=== PATIENT | male | born 1965 | race Hispanic/Latino ===

== ENCOUNTER 2017-11-01 20:42 | Emergency (ER) | payer SELFPAY ==
[2017-11-01] MEDS ORDERED: Bicillin LA 1.2 MILLION UNITS/2 ML SYRINGE ONE (21:25)
[2017-11-01] MEDS ORDERED: HYDROcodone/Acetaminophen 7.5/325 mg Tablet ONE (21:27)
== END 2017-11-01 22:00 | disposition home or self-care (01) ==
LOC: ERS 20:42
DX: J02.0 Streptococcal pharyngitis (principal); E11.9 Type 2 diabetes mellitus without complications; E03.9 Hypothyroidism, unspecified; E78.5 Hyperlipidemia, unspecified; F17.210 Nicotine dependence, cigarettes, uncomplicated
CPT/HCPCS: 87430; 87804; 96372; J0561

== ENCOUNTER 2017-12-08 10:54 | Emergency (ER) | payer SELFPAY ==
[2017-12-08 11:35] LABS: #Basophils 0.1 thou/uL (0.0-0.2); #Eosinphils 0.2 thou/uL (0.0-0.7); #Lymphocytes 3.2 thou/uL (1.20-3.40); #Monocytes 0.6 thou/uL (0.11-0.59); #Neutrophils 4.8 thou/uL (1.40-6.50); %Basophils 1.4 % (0.0-1.0); %Eosinophils 2.5 % (0.0-10.0); %Lymphocytes 35.7 % (21.0-51.0); %Monocytes 7.1 % (0.0-10.0); %Neutrophils 53.4 % (42.0-75.0); Hemoglobin 12.2 g/dL (14.0-18.0); Mean Corpuscular Volume 91.1 fl (80.0-94.0); Mean Platelet Volume 7.1 fL (7.4-10.4); Platelet Count 252 thou/uL (130-400); RBC Distribution Width 12.7 % (11.5-14.5); Red Blood Cell (RBC) Count 3.94 mill/uL (4.70-6.10)
[2017-12-08] MEDS ORDERED: ISOVUE-370 76%-LOCM 1 ML ONE (11:46)
[2017-12-08 11:58] LABS: ALT (SGPT) 22 U/L (8-55); AST (SGOT) 28 U/L (5-34); Albumin 4.3 g/dL (3.5-5.0); Alkaline Phosphatase 79 U/L (40-150); Anion Gap 13 mmol/L (10-20); BUN (Urea Nitrogen) 23 mg/dL (8.9-20.6); Bilirubin, Total 0.3 mg/dL (0.2-1.2); CRP (Inflammatory) Less than 0.50 mg/dL (= or < 0.5); Calc. Creatinine Clearance 0 mL/min (70-130); Calcium 9.7 mg/dL (7.8-10.44); Carbon Dioxide 25 mmol/L (22-29); Chloride 103 mmol/L (98-107); Estimated GFR-MDRD 75; Globulin 3.2 g/dL (2.4-3.5); Glucose 183 mg/dL (70-105); Potassium 4.5 mmol/L (3.5-5.1); Protein, Total 7.5 g/dL (6.0-8.3); Sodium 136 mmol/L (136-145)
[2017-12-08] MEDS ORDERED: Metoclopramide HCl 10 MG/2 ML VIAL ONE (12:27)
[2017-12-08] MEDS ORDERED: methylPREDNISolone Sod Succ/PF 125 MG/2 ML VIAL ONE (12:27)
[2017-12-08] MEDS ORDERED: diphenhydrAMINE 50 MG/ML VIAL ONE (12:27)
--- NOTE | 2017-12-08 13:04 | CT ---
NONCONTRAST HEAD CT CT ANGIOGRAM OF [place]: Date: 12/08/17 HISTORY: Visual disturbances. Vision changes. Worsening headache. COMPARISON: None. TECHNIQUE: Noncontrast head CT is performed in the axial plane. CT angiogram of [place] performed in th e axial plane. Reformatted images submitted for interpretation. FINDINGS: NONCONTRAST HEAD CT: No parenchymal hemorrhage. No extra-axial hematoma. No midline shift. Basilar cisterns are patent. Brain volume is age-appropriate. Cortical downs-white matter differentiation is preserved. Ventricles and sulci are patent and symmetric. Adequate aeration of the sinuses and mastoid air cells. Calvarium is intact. On the postcontrast images, cortical downs-white matter differentiation is preserved. CT ANGIOGRAM: There is symmetric enhancement and luminal diameter of the distal cervical and petrous segments of [place] th internal carotid arteries. There is atherosclerosis involving both cavernous segments with moderat e stenosis involving the left cavernous carotid artery. Both paraclinoid segments are unremarkable. Anterior Circulation: There is symmetric enhancement and luminal diameter of the T1 and M1 segments. Proximal A2 segments a nd proximal MCA branches are essentially symmetric. Posterior Circulation: Codominant vertebral arteries. Left PICA artery origin is unremarkable. Right PICA artery origin is d ifficult to appreciate. Both vertebral arteries supply a normal basilar artery. The left and right P1 segments have symmetric enhancement and luminal diameter. IMPRESSION: 1. Unremarkable CT angiogram of the [place]. No evidence of significant stenosis or aneurys m. 2. 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 POS: [facility]
== END 2017-12-08 15:11 | disposition home or self-care (01) ==
LOC: ERS 10:54
DX: H53.2 Diplopia (principal); I10 Essential (primary) hypertension; E11.9 Type 2 diabetes mellitus without complications; E03.9 Hypothyroidism, unspecified; E78.5 Hyperlipidemia, unspecified; F17.210 Nicotine dependence, cigarettes, uncomplicated; Z79.899 Other long term (current) drug therapy; Z79.84 Long term (current) use of oral hypoglycemic drugs; Z79.82 Long term (current) use of aspirin
CPT/HCPCS: 70496; 80053; 85025; 85652; 86140; 96365; 96375; J1200; J2765; J2930

== ENCOUNTER 2020-06-16 04:16 | Emergency (ER) | payer SELFPAY ==
[2020-06-16] MEDS ORDERED: Ketorolac Tromethamine 30 MG/ML VIAL ONE (04:56)
[2020-06-16 05:03] LABS: #Eosinphils 0.2 thou/uL (0.0-0.7); #Lymphocytes 2.3 thou/uL (1.20-3.40); #Monocytes 0.5 thou/uL (0.11-0.59); #Neutrophils 4.9 thou/uL (1.40-6.50); %Basophils 0.5 % (0.0-1.0); %Eosinophils 1.9 % (0.0-10.0); %Lymphocytes 28.5 % (21.0-51.0); %Monocytes 6.6 % (0.0-10.0); %Neutrophils 62.6 % (42.0-75.0); Hemoglobin 13.2 g/dL (14.0-18.0); Mean Corpuscular HGB CONC 34.1 g/dL (32.0-36.0); Mean Corpuscular Hemoglobin 32.7 pg (27.0-31.0); Mean Corpuscular Volume 95.8 fL (78.0-98.0); Mean Platelet Volume 7.5 fL (7.4-10.4); Platelet Count 259 thou/uL (130-400); RBC Distribution Width 11.7 % (11.5-14.5); Red Blood Cell (RBC) Count 4.04 mill/uL (4.70-6.10); White Blood Cell (WBC) Count 7.9 thou/uL (4.8-10.8)
[2020-06-16] MEDS ORDERED: Morphine 4 MG/ML VIAL ONE (05:28)
[2020-06-16 05:31] LABS: ALT (SGPT) 26 U/L (8-55); AST (SGOT) 19 U/L (5-34); Alkaline Phosphatase 98 U/L (40-110); Anion Gap 13 mmol/L (10-20); BUN (Urea Nitrogen) 18 mg/dL (8.4-25.7); Bilirubin, Total 0.2 mg/dL (0.2-1.2); Calc. Creatinine Clearance 0 mL/min (70-130); Calcium 8.9 mg/dL (7.8-10.44); Carbon Dioxide 26 mmol/L (22-29); Chloride 101 mmol/L (98-107); Estimated GFR-MDRD 74; Globulin 2.9 g/dL (2.4-3.5); Glucose 248 mg/dL (70-105); Lipase 73 U/L (8-78); Potassium 4.4 mmol/L (3.5-5.1); Protein, Total 6.9 g/dL (6.0-8.3); Sodium 136 mmol/L (136-145)
[2020-06-16 06:28] LABS: Bacteria/HPF None Seen HPF (None Seen); Bilirubin Negative (Negative); Blood, Urine Negative (Negative); Clarity Clear (Clear); Glucose, Urine (Dipstick) Greater than 1000 mg/dL (Negative); Ketone, Urine Negative (Negative); Leukocyte Negative Leu/uL (Negative); Nitrite Negative (Negative); Protein, Urine (Dipstick) 100 mg/dL (Neg-Trace); RBC/HPF 0-3 HPF (0-3); Specific Gravity, Urine 1.026 (1.002-1.036); Squamous Epithelial 0-3 HPF (0-3); Urobilinogen Normal mg/dL (Less than 2); WBC/HPF 0-3 HPF (0-3); pH, Urine 6.5 (5.0-9.0)
--- NOTE | 2020-06-16 07:24 | CT ---
CT OF THE ABDOMEN AND PELVIS WITHOUT IV CONTRAST: INDICATION: History of left-sided flank pain that has been worsening for the last few days. COMPARISON: CT of the abdomen and pelvis with contrast dated 05/27/2017. FINDINGS: Lung bases are clear. The unopacified liver, pancreas, adrenal glands, and spleen appear within normal limits. There is likely asymmetric perinephric stranding and enlargement of the right kidney when compared to the left that persists from the prior exam. No hydronephrosis is evident. No renal or ureteral mandy culus is evident. No free fluid is evident. There are mild vascular calcifications involving the abdominopelvic vasculature. Unopacified large and small bowel reveal no acute abnormality. There is a normal appendix in the rig ht lower quadrant. The small bowel is normal-appearing. The visualized bladder, rectum, and perirec don soft tissues are unremarkable-appearing. There are calcifications of the vas deferens which can be seen in diabetic males. There is scattered degenerative and osteoarthritic change. No acute osseous abnormality is evident. IMPRESSION: 1. Persistent perinephric stranding and slight asymmetric enlargement of the right kidney can be see n with entities such as pyelonephritis. Recommend correlation with the clinical examination and urin [facility]. No hydronephrosis is evident. No renal or ureteral calculus is noted. 2. Other chronic findings as above. POS: [facility]
== END 2020-06-16 06:55 | disposition home or self-care (01) ==
LOC: ERS 04:16
DX: R10.32 Left lower quadrant pain (principal); I10 Essential (primary) hypertension; E11.9 Type 2 diabetes mellitus without complications; E03.9 Hypothyroidism, unspecified; E78.5 Hyperlipidemia, unspecified; E78.00 Pure hypercholesterolemia, unspecified; F32.9 Major depressive disorder, single episode, unspecified; Z79.4 Long term (current) use of insulin; F17.210 Nicotine dependence, cigarettes, uncomplicated
CPT/HCPCS: 74176; 80053; 81003; 81015; 83690; 85025; 96361; 96374; 96375; J1885; J2270

== ENCOUNTER 2021-01-19 08:19 | Observation (INO) | payer SELFPAY ==
[2021-01-19] MEDS ORDERED: Ondansetron PF 4 MG/2 ML Vial ONE ×2 (08:42→09:14)
[2021-01-19 09:06] LABS: #Basophils 0.1 thou/uL (0.0-0.2); #Eosinphils 0.1 thou/uL (0.0-0.7); #Lymphocytes 2.5 thou/uL (1.20-3.40); #Monocytes 0.6 thou/uL (0.11-0.59); #Neutrophils 5.3 thou/uL (1.40-6.50); %Basophils 1.4 % (0.0-1.0); %Eosinophils 0.9 % (0.0-10.0); %Lymphocytes 29.3 % (21.0-51.0); %Monocytes 7.3 % (0.0-10.0); %Neutrophils 61.2 % (42.0-75.0); Hemoglobin 13.6 g/dL (14.0-18.0); Mean Corpuscular HGB CONC 33.9 g/dL (32.0-36.0); Mean Corpuscular Hemoglobin 32.3 pg (27.0-31.0); Mean Corpuscular Volume 95.3 fL (78.0-98.0); Mean Platelet Volume 7.3 fL (7.4-10.4); Platelet Count 325 thou/uL (130-400); RBC Distribution Width 11.9 % (11.5-14.5); Red Blood Cell (RBC) Count 4.21 mill/uL (4.70-6.10); White Blood Cell (WBC) Count 8.6 thou/uL (4.8-10.8)
[2021-01-19 09:28] LABS: ALT (SGPT) 50 U/L (8-55); AST (SGOT) 43 U/L (5-34); Albumin 4.6 g/dL (3.5-5.0); Alkaline Phosphatase 103 U/L (40-110); Anion Gap 18 mmol/L (10-20); BUN (Urea Nitrogen) 17 mg/dL (8.4-25.7); Bilirubin, Total 0.3 mg/dL (0.2-1.2); Calc. Creatinine Clearance 0 mL/min (70-130); Calcium 10.5 mg/dL (7.8-10.44); Carbon Dioxide 23 mmol/L (22-29); Chloride 102 mmol/L (98-107); Globulin 3.6 g/dL (2.4-3.5); Glucose 270 mg/dL (70-105); Potassium 4.4 mmol/L (3.5-5.1); Protein, Total 8.2 g/dL (6.0-8.3); Sodium 139 mmol/L (136-145)
[2021-01-19] MEDS ORDERED: Aspirin Chewable 81 MG TAB ONE ×2 (12:01→12:29)
[2021-01-19] MEDS ORDERED: Acetaminophen 500 MG TAB ONE (12:01)
[2021-01-19] MEDS ORDERED: Enoxaparin Sodium 100 MG/ML SYRINGE ONE (12:29)
[2021-01-19] MEDS ORDERED: Nitroglycerin 0.4 MG TAB 1 EACH ONE (12:29)
[2021-01-19] MEDS ORDERED: Potassium Chloride 20 MEQ TAB ONE (12:29)
[2021-01-19] MEDS ORDERED: Promethazine HCl 25 MG/ML VIAL ONE (12:40)
[2021-01-19] MEDS ORDERED: Dextrose 50% Abboject 50 ML SYRINGE SLOW IVP PRN (12:46)
[2021-01-19] MEDS ORDERED: hydrALAZINE 20 MG/ML VIAL SLOW IVP PRN (12:46)
[2021-01-19] MEDS ORDERED: Dextrose 5% in Water 1,000 ML IV PRN (12:46)
[2021-01-19] MEDS ORDERED: Acetaminophen 650 MG Suppository PR PRN (12:49)
[2021-01-19] MEDS ORDERED: Sodium Chloride 0.9% 1,000 ML IV SCH (13:00)
[2021-01-19 14:49] VITALS: BMI 30.9
[2021-01-19] MEDS: HumaLOG 300 UNITS/3 ML VIAL SC PRN (17:30)
[2021-01-19] MEDS: Meclizine HCl 25 MG TAB PO PRN (18:13)
[2021-01-19] MEDS: Lantus 1000 UNITS/10 ML VIAL SC SCH (22:20)
[2021-01-19] MEDS: Famotidine 20 MG TAB PO SCH (22:21)
[2021-01-19] MEDS: Atorvastatin Calcium 40 MG TAB PO SCH (22:21)
[2021-01-19] MEDS: Acetaminophen 325 MG TAB PO PRN (23:32)
[2021-01-20 04:46] LABS: #Basophils 0.1 thou/uL (0.0-0.2); #Eosinphils 0.2 thou/uL (0.0-0.7); #Lymphocytes 3.6 thou/uL (1.20-3.40); #Monocytes 0.8 thou/uL (0.11-0.59); #Neutrophils 4.2 thou/uL (1.40-6.50); %Basophils 0.9 % (0.0-1.0); %Eosinophils 2.1 % (0.0-10.0); %Lymphocytes 40.3 % (21.0-51.0); %Monocytes 8.7 % (0.0-10.0); %Neutrophils 48.1 % (42.0-75.0); Hemoglobin 12.1 g/dL (14.0-18.0); Mean Corpuscular HGB CONC 32.9 g/dL (32.0-36.0); Mean Corpuscular Hemoglobin 31.9 pg (27.0-31.0); Mean Corpuscular Volume 96.8 fL (78.0-98.0); Mean Platelet Volume 7.3 fL (7.4-10.4); Platelet Count 248 thou/uL (130-400); Red Blood Cell (RBC) Count 3.78 mill/uL (4.70-6.10); White Blood Cell (WBC) Count 8.8 thou/uL (4.8-10.8)
[2021-01-20] MEDS: Meclizine HCl 25 MG TAB PO PRN (04:48)
[2021-01-20 04:52] LABS: Hemoglobin A1c 9.2 % (4.0-6.0)
[2021-01-20 05:11] LABS: ALT (SGPT) 40 U/L (8-55); AST (SGOT) 29 U/L (5-34); Albumin 3.7 g/dL (3.5-5.0); Alkaline Phosphatase 102 U/L (40-110); Anion Gap 12 mmol/L (10-20); BUN (Urea Nitrogen) 18 mg/dL (8.4-25.7); Bilirubin, Direct Less than 0.1 mg/dL (0.1-0.3); Bilirubin, Total Less than 0.2 mg/dL (0.2-1.2); Calc. Creatinine Clearance 125 mL/min (70-130); Calcium 9.4 mg/dL (7.8-10.44); Carbon Dioxide 24 mmol/L (22-29); Cardiac Risk 5.2 (Less than 4.5); Chloride 104 mmol/L (98-107); Cholesterol 193 mg/dl (< 200 Desired); Glucose 266 mg/dL (70-105); HDL Cholesterol 37 mg/dL (>60 Neg Risk); LDL Cholesterol, Calculated 93 mg/dL; Protein, Total 6.6 g/dL (6.0-8.3); Sodium 136 mmol/L (136-145); Triglycerides 317 mg/dL (Less than 150)
[2021-01-20] MEDS: HumaLOG 300 UNITS/3 ML VIAL SC PRN ×3 (06:43→18:22)
[2021-01-20] MEDS: Famotidine 20 MG TAB PO SCH ×2 (08:45→21:13)
[2021-01-20] MEDS: Ondansetron PF 4 MG/2 ML Vial IVP PRN (08:50)
[2021-01-20] MEDS ORDERED: Aspirin 81 mg Enteric Coated Tablet PO SCH (09:00)
[2021-01-20] MEDS ORDERED: Meclizine HCl 25 MG TAB PO SCH (10:45)
[2021-01-20] MEDS ORDERED: Zolpidem Tartrate 5 MG TAB PO PRN (14:18)
[2021-01-20] MEDS ORDERED: Cyclobenzaprine 10 MG TAB PO PRN (14:18)
[2021-01-20] MEDS: Meclizine HCl 25 MG TAB PO SCH ×2 (14:40→21:13)
[2021-01-20] MEDS: Acetaminophen 325 MG TAB PO PRN (17:19)
[2021-01-20] MEDS ORDERED: HumaLOG 300 UNITS/3 ML VIAL SC PRN (19:00)
[2021-01-20] MEDS ORDERED: Simvastatin 10 MG TAB PO SCH (21:00)
[2021-01-20] MEDS ORDERED: Enoxaparin Sodium 40 MG/0.4 ML SYRINGE SC SCH (21:00)
[2021-01-20] MEDS: Lantus 1000 UNITS/10 ML VIAL SC SCH (21:12)
[2021-01-20] MEDS: Atorvastatin Calcium 40 MG TAB PO SCH (21:13)
[2021-01-21] MEDS: Ondansetron PF 4 MG/2 ML Vial IVP PRN (04:42)
[2021-01-21 05:13] LABS: #Basophils 0.1 thou/uL (0.0-0.2); #Eosinphils 0.1 thou/uL (0.0-0.7); #Lymphocytes 2.6 thou/uL (1.20-3.40); #Monocytes 0.6 thou/uL (0.11-0.59); #Neutrophils 4.1 thou/uL (1.40-6.50); %Basophils 1.1 % (0.0-1.0); %Eosinophils 1.8 % (0.0-10.0); %Lymphocytes 34.6 % (21.0-51.0); %Monocytes 8.2 % (0.0-10.0); %Neutrophils 54.3 % (42.0-75.0); Hemoglobin 11.5 g/dL (14.0-18.0); Mean Corpuscular HGB CONC 33.4 g/dL (32.0-36.0); Mean Corpuscular Hemoglobin 31.9 pg (27.0-31.0); Mean Corpuscular Volume 95.7 fL (78.0-98.0); Mean Platelet Volume 7.6 fL (7.4-10.4); Platelet Count 246 thou/uL (130-400); RBC Distribution Width 11.7 % (11.5-14.5); White Blood Cell (WBC) Count 7.6 thou/uL (4.8-10.8)
[2021-01-21 05:48] LABS: Anion Gap 12 mmol/L (10-20); BUN (Urea Nitrogen) 17 mg/dL (8.4-25.7); Calc. Creatinine Clearance 125 mL/min (70-130); Calcium 9.7 mg/dL (7.8-10.44); Carbon Dioxide 25 mmol/L (22-29); Chloride 104 mmol/L (98-107); Glucose 248 mg/dL (70-105); Potassium 4.1 mmol/L (3.5-5.1); Sodium 137 mmol/L (136-145)
[2021-01-21] MEDS: HumaLOG 300 UNITS/3 ML VIAL SC PRN ×2 (06:31→11:37)
[2021-01-21] MEDS: Acetaminophen 325 MG TAB PO PRN (08:17)
[2021-01-21] MEDS: Famotidine 20 MG TAB PO SCH (08:18)
[2021-01-21] MEDS: Meclizine HCl 25 MG TAB PO SCH (08:18)
[2021-01-21] MEDS ORDERED: Lisinopril 2.5 MG TAB PO SCH (09:00)
[2021-01-21] MEDS ORDERED: Aspirin 325 MG TAB PO SCH (09:00)
[2021-01-21 11:57] VITALS: TEMP 97.6
[2021-01-21 23:55] VITALS: BP 153/64
== END 2021-01-21 13:25 | disposition home or self-care (01) ==
LOC: ERS 08:19 → 2SE 12:32
PROVIDERS: ADMIT Internal Medicine; ATTEND Internal Medicine
DX: H93.8X2 Other specified disorders of left ear (principal); I10 Essential (primary) hypertension; E11.65 Type 2 diabetes mellitus with hyperglycemia; E78.5 Hyperlipidemia, unspecified; E03.9 Hypothyroidism, unspecified; N17.9 Acute kidney failure, unspecified; F17.210 Nicotine dependence, cigarettes, uncomplicated; Z79.4 Long term (current) use of insulin; Z79.82 Long term (current) use of aspirin; Z79.899 Other long term (current) drug therapy
CPT/HCPCS: 36415; 36416; 70450; 70551; 80048; 80053; 80061; 80076; 83036; 84443; 84484; 85025; 93005; 93306; 93880; 96372; 96374; 96375; 96376; G0378; J1650; J1815; J2405; J2550

== ENCOUNTER 2021-09-07 07:01 | Emergency (ER) | payer SELFPAY | END 2021-09-07 08:48 | disposition home or self-care (01) | LOC: ERS 07:01 | DX: S93.601A Unspecified sprain of right foot, initial encounter (principal); I10 Essential (primary) hypertension; E11.9 Type 2 diabetes mellitus without complications; E78.00 Pure hypercholesterolemia, unspecified; E78.5 Hyperlipidemia, unspecified; E03.9 Hypothyroidism, unspecified; F17.210 Nicotine dependence, cigarettes, uncomplicated ==

== ENCOUNTER 2023-09-11 11:08 | Emergency (ER) | payer SELFPAY ==
[~2023-09-11 11:08] MED LIST: Iopamidol-370 76% 500 ML MDV (1 ML CHARGE) ONE
[2023-09-11 13:35] LABS: #Basophils 0.1 thou/uL (0.0-0.2); #Eosinphils 0.3 thou/uL (0.0-0.7); #Neutrophils 5.5 thou/uL (1.40-6.50); %Basophils 0.9 % (0.0-1.0); %Lymphocytes 26.7 % (21.0-51.0); %Monocytes 10.2 % (0.0-10.0); %Neutrophils 58.5 % (42.0-75.0); Hematocrit 43.5 % (42.0-52.0); Hemoglobin 14.2 g/dL (14.0-18.0); Mean Corpuscular HGB CONC 32.6 g/dL (32.0-36.0); Mean Corpuscular Hemoglobin 30.7 pg (27.0-31.0); Mean Platelet Volume 9.7 fL (7.4-10.4); Platelet Count 303 10x3/uL (130-400); RBC Distribution Width 13.2 % (11.5-14.5); Red Blood Cell (RBC) Count 4.63 mill/uL (4.70-6.10); White Blood Cell (WBC) Count 9.4 10x3/uL (4.8-10.8)
[2023-09-11 13:58] LABS: ALT (SGPT) 46 U/L (8-55); AST (SGOT) 28 U/L (5-34); Albumin 3.8 g/dL (3.5-5.0); Alkaline Phosphatase 118 U/L (40-110); Anion Gap 15 mmol/L (10-20); BUN (Urea Nitrogen) 13 mg/dL (8.4-25.7); Bilirubin, Total 0.4 mg/dL (0.2-1.2); Calc. Creatinine Clearance 0 mL/min (70-130); Calcium 9.4 mg/dL (7.8-10.44); Carbon Dioxide 25 mmol/L (22-29); Chloride 100 mmol/L (98-107); Estimated GFR 68; Glucose 254 mg/dL (70-105); Potassium 4.3 mmol/L (3.5-5.1); Protein, Total 7.8 g/dL (6.0-8.3); Sodium 136 mmol/L (136-145)
[2023-09-11] MEDS ORDERED: Ondansetron PF 4 MG/2 ML Vial ONE (15:56)
[2023-09-11] MEDS ORDERED: Lidocaine 1% w/Epinephrine 1:100K 20 ML VIAL ONE (15:56)
[2023-09-11] MEDS ORDERED: Morphine 4 MG/ML VIAL ONE (15:56)
== END 2023-09-11 19:05 | disposition home or self-care (01) ==
LOC: ERS 11:08
DX: L02.211 Cutaneous abscess of abdominal wall (principal); L03.311 Cellulitis of abdominal wall; I10 Essential (primary) hypertension; E11.9 Type 2 diabetes mellitus without complications; F17.210 Nicotine dependence, cigarettes, uncomplicated; Z79.4 Long term (current) use of insulin
CPT/HCPCS: 10060; 36415; 74177; 80053; 83605; 85025; 86140; 87040; 96361; 96374; 96375; J2270; J2405; Q9967